=== PATIENT | male | born 1940 | race Caucasian/White ===

== ENCOUNTER 2019-04-20 09:19 | Emergency (ER) | payer MEDICARE, OTHER, SELFPAY ==
[2019-04-20 09:20] VITALS: BP 141/101; PULSE 89; RESP 17; TEMP 36.4; O2SAT 96
--- NOTE | 2019-04-20 09:38 | ED.VIS.GEN ---
History of Present Illness Chief Complaint: Allergic Reaction Detail of Chief Complaint: Rash, difficulty breathing and per swelling lower lip Informant: Patient, Family Onset: Yesterday Context: Sudden Onset Timing: Continuous Quality: Pruritic raised rash Location: Neurolysed Current Severity: Moderate Maximum Severity: Severe Worsened by: Unknown Relieved by: Better after patient rolled cortisone cream over his entire body Associated Symptoms: Shortness of breath, swelling lower lip Narrative: Patient is a 78-year-old male who was recently diagnosed with prostatitis. He was placed on 3-day supply of sulfamethoxazole trimethoprim. He presents because of shortness of breath, and rash that started last evening. is concerned he had swelling of his lower lip this morning. He denies eating berries, nuts or shellfish food yesterday. He has discomfort perianal/perineal region. He denies bilateral testicular pain. He denies change in color his urine. Patient denies swelling of his tongue or throat. Patient denies difficulty swallowing. has not noted change in voice no has patient. He does report nausea and lightheadedness. He reports no past medical history other than prostatitis Prior similar symptoms: No Recent Illness/Hospitalization: Yes - Prostatitis - Past Medical History (1) Prostatitis, acute Status: Acute Past Medical History - Allergies and Home Meds Allergies/Adverse Reactions: Allergies Penicillins Allergy (Verified 04/20/19 09:20) Itching Sulfa (Sulfonamide Antibiotics) Allergy (Verified 04/20/19 09:56) Rash sulfamethoxazole [From Bactrim] Allergy (Verified 04/20/19 09:56) Rash trimethoprim [From Bactrim] Allergy (Verified 04/20/19 09:56) Rash Primary Care Physician: Miguel Angel Felix MD [Primary Care Provider] - Prior records reviewed: Yes Past Medical History: None Lives: Spouse/ Significant Other Smoking Status: Never smoker Alcohol: None Drugs: None Review of Systems General: Denies: Chills, Fever, Malaise, Subjective Eyes: Denies: Visual changes - bilaterally, Blurred Vision - bilaterally ENT: Denies: Rhinorrhea, Sore throat Cardiovascular: Denies: Chest pain, Palpitations, Heart racing, -, - Respiratory: Reports: Dyspnea, Cough, Dyspnea on exertion Gastrointestinal: Reports: Nausea Musculoskeletal: Denies: Myalgias, Arthralgias, Neck pain, Back pain, Swelling, Extremity Pain Skin: Denies: Rash, Wounds Neurological: Denies: Headache, Weakness, Parasthesia, Numbness Hematologic: Denies: Easy bruising, Easy bleeding, Lymphadenopathy, -, - Allergy: Reports: Uticaria, Swelling of the mouth. Denies: Swelling of the tongue Physical Exam Vital Signs/Narrative: Vital Signs Temp Pulse Resp BP Pulse Ox 04/20/19 09:20 97.5 F L 89 17 141/101 H 96 Inital Vital Signs reviewed: Yes General: Well nourished, Well developed, No Acute Distress Head: Normocephalic, Atraumatic Eyes: Perrl, EOMI ENT: Moist mucous membranes, No rhinorrhea Neck: Supple, Nontender, No lymphadenopathy, No JVD Cardiovascular: Regular rate, Regular rhythm, No murmurs Respiratory: Chest nontender, Wheezing, Decreased Air Movement Abdomen: Soft, Nontender, Nondistended, Normal bowel sounds, No masses Back: Nontender, Normal Inspection Extremities: Nontender, No edema Skin: Normal color, No rash. Negative for: Cyanosis, Diaphoresis, Jaundice, No Trauma Neurological: Alert, Oriented x3, Cranial nerves II-XII grossly intact, Normal Strength, Normal Sensation Psychological: Normal affect, Normal Mood Diagnostic/Tx/Re-eval Laboratory Results 04/20/19 04/20/19 04/20/19 09:52 09:52 10:15 WBC 8.1 RBC 5.17 Hgb 15.8 Hct 46.2 MCV 89.4 MCH 30.6 MCHC 34.2 RDW Std Deviation 41.0 RDW Coeff of [place] 12.5 Plt Count 100 L MPV 8.8 Immature Gran % (Auto) 1.000 H Neut % (Auto) 66.5 Lymph % (Auto) 13.3 L [place] % (Auto) 5.3 Eos % (Auto) 13.2 H Baso % (Auto) 0.7 Absolute Neuts (auto) 5.4 Absolute Lymphs (auto) 1.08 Nucleated RBC % 0 Sodium 135 L Potassium 5.5 H Chloride 102 Carbon Dioxide 28.0 Anion Gap 5 BUN 15 Creatinine 1.14 Estim Creat Clear Calc 57.80 Est GFR (MDRD) Af Amer 80 Est GFR (MDRD) Non-Af 66 BUN/Creatinine Ratio 13.2 Glucose 138 H Calcium 9.2 Urine Color Yellow Urine Clarity Sl. Cloudy Urine pH 6.5 Ur Specific [place] 1.015 Urine Protein Negative Urine Glucose (UA) Normal Urine Ketones Negative Urine Occult Blood Negative Urine Nitrite Negative Urine Bilirubin Negative Urine Urobilinogen 1 H Ur Leukocyte Esterase Negative Urine RBC 0 SEEN Urine WBC 0 SEEN Ur Squamous Epith Cells 0 SEEN Amorphous Sediment 1+ Urine Bacteria RARE Urine Mucus 0 SEEN White count and H&H are unremarkable. Electrolyte panel reveals slight elevation in potassium. There is no evidence of renal dysfunction. Urine is negative. - Medical Decision Making She with generalized allergic reaction with angioedema, wheezing and urticaria. He was treated with 20 mg of Pepcid IV push, and 5 mg Solu-Medrol, epinephrine and aerosol. He did not receive Benadryl since he has problems with prostate and may cause urinary retention. He was placed on a monitor and made n.p.o. Because of diagnosis of acute prostatitis blood work was obtained as well as UA. Once patient's respiratory status improves will perform rectal exam. She was reassessed at 1035. He is no longer tachypneic. There is no wheezing noted. Rash has improved greater than 50%. Swelling has diminished as well. Patient reports he feels much better. He was reassessed at 1400. Mild residual rash distal right and left leg. He informed me that urologist called in a new prescription for doxycycline. ED Disposition - Plan for ED Patient: Disposition: Home or Assisted Living Diagnosis: Drug-induced anaphylaxis Instructions: ALLERGIC REACTION, Drug Prescriptions: Prednisone [Deltasone] 40 mg PO DAILY #10 tab Transmission Status: Pending to [facility] #[id number] Famotidine [Pepcid] 20 mg PO BID #10 tab Transmission Status: Pending to [facility] #[id number] Referrals: Miguel Angel Felix MD [Primary Care Provider] - Additional Instructions: Up with urologist as scheduled. Take antibiotics prescribed by urologist until gone. Your prescription was electronically transmitted to [facility] located in [facility]. In addition to medicines prescribed take Claritin as instructed on box/vial.
[2019-04-20 09:46] VITALS: PULSE 73; RESP 18
[2019-04-20] MEDS: Albuterol 2.5 MG/3 ML VIAL.NEB. INHALATION (09:46)
[2019-04-20] MEDS: MethylPREDNISolone 125 MG/2 ML Vial IV (09:53)
[2019-04-20 10:05] LABS: Absolute Lymphocyte Count 1.08 X10^3/uL (0.83-4.51); Absolute Neutrophil Count 5.4 X10^3/uL (2.0-7.7); Basophil# 0.06 X10^3/uL; Basophil% 0.7 % (0-1); Eosinophil# 1.07 X10^3/uL; Eosinophils% 13.2 % (0-5); Hematocrit 46.2 % (40-54); Hemoglobin 15.8 g/dL (13.0-16.5); Lymphocyte # 1.08 X10^3/ul (4.0); Lymphocyte % 13.3 % (19-41); Mean Corp Hgb Conc 34.2 g/dL (32-36); Mean Corpuscular Hgb 30.6 pg (27.0-32.0); Mean Corpuscular Volume 89.4 fL (80-94); Mean Platelet Vol. 8.8 fl (6.2-12.0); Monocyte# 0.43 X10^3/uL; Monocyte% 5.3 % (0-10); NRBC Flagged by Analyzer 0 % (0-5); Neutrophil # 5.37 X10^3/uL (2.7-7.7); Neutrophil % 66.5 % (47-70); Platelet Count 100 K/mm3 (150-450); RBC Distribution Width CV 12.5 % (11.6-14.6); Red Blood Count 5.17 M/mm3 (4.6-6.2); White Blood Count 8.1 K/mm3 (4.4-11.0)
[2019-04-20 10:14] LABS: Anion Gap 5 (5-15); BUN 15 mg/dL (7-18); BUN/Creat Ratio 13.2 RATIO (10-20); Calcium,Total 9.2 mg/dL (8.5-10.1); Chloride 102 mmol/L (98-107); Creatinine, Serum 1.14 mg/dL (0.70-1.30); EST Glomerular Filtration Rate 66 mL/min (>60); Est Glom Filt Rate - Afr Amer 80 mL/min (>60); Glucose 138 mg/dL (74-106); Potassium 5.5 mmol/L (3.5-5.1); Sodium Level 135 mmol/L (136-145)
[2019-04-20 10:22] LABS: Mucous, Urine 0 SEEN /hpf (<or=2+); Red Blood Cells-Urine 0 SEEN /hpf (0-5); Squamous Epithelial Cells - UA 0 SEEN /hpf (0-5); White Blood Cells 0 SEEN /hpf (0-5)
[2019-04-20 10:23] LABS: Color, Urine Yellow (Yellow); Glucose, Dipstick Normal (Normal); Ketone-Dipstick Negative (Negative); Leukocyte Esterase-Dipstick Negative /ul (Negative); Nitrite-Dipstick Negative (Negative); Occult Blood-Urine Negative /ul (Negative); Protein-Dipstick Negative (Negative); Specific Gravity, Urine 1.015 (1.002-1.030); Urine Bilirubin Dipstick Negative (Negative); Urine Clarity Sl. Cloudy (Clear); Urine Urobilinogen 1 mg/dl (Normal); Urine pH 6.5 (5.0 - 8.0)
[2019-04-20 10:29] LABS: Bacteria RARE /hpf (None Seen)
[2019-04-20 10:30] LABS: Amorphous Sediment 1+
[2019-04-20 11:08] VITALS: BP 136/91; PULSE 71; RESP 16; O2SAT 96
--- NOTE | 2019-04-20 11:57 | ED.RN ---
Patient reports itching in ankles and arms has started again. MD notified and this nurse will continue to monitor.
[2019-04-20] MEDS: Loratadine 10 MG Tablet PO (12:55)
[2019-04-20 14:19] VITALS: BP 151/82; PULSE 78; RESP 21; O2SAT 96
[2019-04-20 14:41] VITALS: BP 151/82; PULSE 78; RESP 21; O2SAT 99
== END 2019-04-20 14:46 | disposition home or self-care (01) ==
PROVIDERS: Emergency Provider Emergency Medicine; Family Provider Internal Medicine; PCP Internal Medicine
DX: T88.6XXA Anaphylactic reaction due to adverse effect of correct drug or medicament properly administered, initial encounter (principal); T78.3XXA Angioneurotic edema, initial encounter; T36.8X5A Adverse effect of other systemic antibiotics, initial encounter; Y92.9 Unspecified place or not applicable; N41.0 Acute prostatitis; Z79.899 Other long term (current) drug therapy; Z88.0 Allergy status to penicillin; Z88.2 Allergy status to sulfonamides; Z88.1 Allergy status to other antibiotic agents
CPT/HCPCS: 80048; 81001; 85025; 94640; 96372; 96374; 96375; 99284; A4216; J3490